=== PATIENT | male | born 1955 | race Caucasian/White ===

== ENCOUNTER 2017-01-14 09:37 | Emergency (ER) | payer SELFPAY ==
--- NOTE | ~2017-01-14 | ER ---
PATIENT'S NAME: [facility] AGE: 61 Y [address] ROOM: [place] [address] LOCATION: [facility] ADMIT DATE: 01/14/2017 ER/Outpatient Report DISCHARGE DATE: 01/14/2017 FAMILY PHYSICIAN: Arnol Gracia MD ATTENDING PHYSICIAN: Deric Santiago Time of Arrival: 0937 hours. Time of Evaluation/Seen: 0947 hours. IDENTIFICATION: A 61-year-old male. CHIEF COMPLAINT: Right knee injury. HISTORY OF PRESENT ILLNESS: The patient is a 61-year-old male who fell while fishing yesterday onto a rock, direct blow to his right knee. He has had increasing amounts of pain and has a difficulty with weightbearing secondary to the pain today. No other injury. PAST MEDICAL HISTORY: ALLERGIES: PENICILLIN AND ASPIRIN. PENICILLIN CAUSES STOMACH UPSET. CURRENT MEDICATIONS: He did not bring the list of his medications with him. MEDICAL PROBLEMS: 1. Coronary artery disease. 2. Had an MN in 1975. SOCIAL HISTORY: The patient lives in [place]. 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 He rides his bike or walks for that. Smokes half pack per day. No alcohol or drug use. FAMILY HISTORY: No pertinent family history identified. REVIEW OF SYSTEMS: All systems were reviewed and negative other than what is noted in the HPI. IMMUNIZATIONS: Last tetanus, uncertain. PATIENT'S NAME: [facility] AGE: 61 Y [address] ROOM: [place] [address] LOCATION: [facility] ADMIT DATE: 01/14/2017 ER/Outpatient Report DISCHARGE DATE: 01/14/2017 FAMILY PHYSICIAN: Arnol Gracia MD ATTENDING PHYSICIAN: Deric Santiago PHYSICAL EXAMINATION: VITAL SIGNS: Height 5 feet 11 inches and weight 57.7 kg. Blood pressure 161/89, pulse 76, respiratory rate 16, temperature 98.5, and saturations 97% on room air. GENERAL: A 61-year-old male in mild distress. HEENT: Head; normocephalic and atraumatic. Ears; TMs not visualized. Eyes; pupils equal and reactive to light and accommodation. Extraocular movements intact. LUNGS: Clear to auscultation. HEART: Regular rate and rhythm. ABDOMEN: Soft, nondistended, and nontender. SKIN: [place], warm, and dry. No lesions or rashes noted other than a very small puncture wound, prepatellar on the left. No surrounding erythema. No drainage. He does have some prepatellar swelling in his left knee. EXTREMITIES: Upper extremities, full range of motion. Neurovascularly intact. He has no tenderness to pelvic rock. Lower extremities, tender to palpation in his left knee, pain with flexion and extension. No ligamentous laxity is appreciated. IMAGING STUDIES: X-ray, anterior soft-tissue swelling. No acute fracture, pending Radiology over-read. IMPRESSION: Right knee injury with anterior soft-tissue injury. PLAN: Keflex 500 mg t.i.d., ice and elevate. Knee immobilizer, crutches, and weight bear as tolerated. Tylenol for pain. Follow up with Dr. Gracia in 1 to 2 days. Follow up sooner if any problems or concerns. No work until he follows up with Dr. Gracia. The patient understands and agrees, and all questions have been answered. DERIC SANTIAGO MD CAR/modl /[id number] d: 01/14/172006 t: 01/15/17716, OUTPATIENT REPORT
== END 2017-01-14 10:41 | disposition disaster alternative care site (69) ==
LOC: GACC 09:37
DX: S81.031A Puncture wound without foreign body, right knee, initial encounter (principal); I25.10 Atherosclerotic heart disease of native coronary artery without angina pectoris; I25.2 Old myocardial infarction; F17.210 Nicotine dependence, cigarettes, uncomplicated; Z23 Encounter for immunization; Z88.6 Allergy status to analgesic agent; Z88.0 Allergy status to penicillin; W20.8XXA Other cause of strike by thrown, projected or falling object, initial encounter; Y93.89 Activity, other specified; Y99.8 Other external cause status

== ENCOUNTER 2017-02-03 16:52 | Emergency (ER) | payer SELFPAY ==
--- NOTE | ~2017-02-03 | ER ---
PATIENT'S NAME: ERICA SHUKLA [facility] AGE: 61 Y [address] ROOM: [place] [address] LOCATION: [facility] ADMIT DATE: 02/03/2017 ER/Outpatient Report DISCHARGE DATE: 02/03/2017 FAMILY PHYSICIAN: Arnol Gracia MD ATTENDING PHYSICIAN: Jessa Santiago Time of Arrival: 1652 hours. Time of Evaluation/Seen: 1652 hours. IDENTIFICATION: A 61-year-old male. CHIEF COMPLAINT: Illness. HISTORY OF PRESENT ILLNESS: The patient is a 61-year-old male who was stung in the right eye by a bee at approximately 0130 hours. He was out working in the yard and he went ahead mowed and then when he went inside about 0430 hours, he had some nausea and vomited. He also had a loose stool. He called the ambulance and came in here. He has had some abdominal cramping. He had the nausea and vomiting and diarrhea x1. No blood in his stools. He is not short of breath. He denies chest pain. No other problems or concerns. He has no itching of his eye. He is not allergic to bees that he is aware of. ALLERGIES: PENICILLIN AND ASPIRIN THAT CAUSE NAUSEA AND VOMITING. CURRENT MEDICATIONS: Denies. MEDICAL PROBLEMS: Denies. PAST SURGICAL HISTORY: Prior Surgeries: Appendectomy. SOCIAL HISTORY: The patient lives in [place]. Tobacco use, he smokes 1/2 pack per day for 48 years. Alcohol use, denies. Drug use, denies. REVIEW OF SYSTEMS: All systems were reviewed. He does have an excoriated rash around his waistline which he said started just this afternoon, and he has some excoriations on his right 4th finger. He says again that started just prior PATIENT'S NAME: ERICA SHUKLA [facility] AGE: 61 Y [address] ROOM: [place] [address] LOCATION: [facility] ADMIT DATE: 02/03/2017 ER/Outpatient Report DISCHARGE DATE: 02/03/2017 FAMILY PHYSICIAN: Arnol Gracia MD ATTENDING PHYSICIAN: Jessa Santiago to arrival. PHYSICAL EXAMINATION: VITAL SIGNS: Weight 58.5 kg. Blood pressure 154/74, pulse 85, respiratory rate is 16, temperature 99.1, and saturations 95%. GENERAL: A 61-year-old male in no acute distress. HEENT: Head; normocephalic and atraumatic. Ears; TMs translucent in both ears. Eyes; pupils equal and reactive to light and accommodation. Extraocular movements intact. Nose; mucosa pink. No lesions. Mouth; no lesions. Pharynx, benign. NECK: Supple. No lymphadenopathy. LUNGS: Clear to auscultation. No rhonchi, wheezes, or rales. HEART: Regular rate and rhythm. No murmur, rub, or gallop. ABDOMEN: Bowel sounds present. Soft, nondistended, and minimally tender to deep palpation. No rebound or guarding. He has an excoriated rash just at his waistline just below his umbilicus. He also has excoriated rash on his right 4th finger. No other rash or hives are present. SKIN: The patient has some minimal swelling lateral to his right eye. No erythema and no itching. LABORATORY DATA AND IMAGING STUDIES: Hemoglobin 16.1, hematocrit 47.7, platelets 249,000, and white count 12.7 with a normal differential. Chemistry panel, unremarkable. Amylase and lipase are normal. EMERGENCY DEPARTMENT COURSE: The patient was given Benadryl 25 mg p.o. The itching improved. He was given Zofran 4 mg ODT sublingual. He has had no nausea or vomiting here. He said he has had some loose stools, but did not collect any while he was here. If he has another one, we will collect that, but he is feeling much better. IMPRESSION AND PLAN: 1. Bee sting. 2. Abdominal cramping, nausea, and vomiting, improved. Plan: Prilosec 20 mg [id number] 1 daily for 7 days. Clear liquids as tolerated. Advance diet as tolerated. Benadryl 25 to 50 mg every 6 hours as needed for itching. Follow up immediately if any respiratory distress. Follow up with Dr. Gracia in 1 to 3 days. The patient understands and agrees, and all questions have been answered. JESSA SANTIAGO MD PATIENT'S NAME: ERICA SHUKLA [facility] AGE: 61 Y [address] ROOM: [place] [address] LOCATION: ED ADMIT DATE: 02/03/2017 ER/Outpatient Report DISCHARGE DATE: 02/03/2017 FAMILY PHYSICIAN: Arnol Garcia MD ATTENDING PHYSICIAN: Jessa Santiago/denisha /[id number] d: 02/03/172027 t: 02/06/17 0746, OUTPATIENT REPORT
[2017-02-03 17:14] LABS: BASOPHIL % 0.3 %; EOSINOPHIL # 0.1 K/uL (0.0-0.5); EOSINOPHIL % 0.6 %; HEMATOCRIT 47.7 % (37.0-53.0); HEMOGLOBIN 16.1 g/dL (12.0-17.0); IMMATURE GRANULOCYTE % 0.2 %; LYMPHOCYTE % 8.1 %; MCH 30.5 pg (27.0-34.0); MCHC 33.8 gm/dL (32.0-36.5); MCV 90.3 fl (83.0-98.0); MONOCYTE # 0.5 K/uL (0.0-1.0); MONOCYTE % 3.6 %; MPV 9.2 fl (9.4-12.4); NEUTROPHIL # (ANC) 11.1 K/uL (1.4-9.0); NEUTROPHIL % 87.2 %; NRBC % 0 /100WBC (0-0.00); PLATELET COUNT 249 K/uL (150-450); RBC 5.28 M/uL (4.00-6.00); RDW-CV 13.4 % (11.9-14.6); WBC 12.7 K/uL (4.0-11.0)
[2017-02-03 17:33] LABS: ALBUMIN 4.1 gm/dL (3.5-5.0); ANION GAP 12.7 (10.0-19.0); CALCIUM 9.5 mg/dL (8.5-10.5); CREATININE 1.1 mg/dL (0.6-1.3); POTASSIUM 3.7 mMol/L (3.7-5.1); TOTAL BILIRUBIN 0.4 mg/dL (0.0-1.5)
== END 2017-02-03 18:27 | disposition disaster alternative care site (69) ==
LOC: GMED 16:52
PROVIDERS: Family Medicine
DX: T63.441A Toxic effect of venom of bees, accidental (unintentional), initial encounter (principal); R11.2 Nausea with vomiting, unspecified; R10.9 Unspecified abdominal pain; Z90.49 Acquired absence of other specified parts of digestive tract; F17.210 Nicotine dependence, cigarettes, uncomplicated; Z88.0 Allergy status to penicillin; Z88.6 Allergy status to analgesic agent; Y92.096 Garden or yard of other non-institutional residence as the place of occurrence of the external cause